=== PATIENT | male | born 1980 | race Caucasian/White ===

== ENCOUNTER 2020-07-24 08:21 | Emergency (ER) | payer MEDICAID ==
--- NOTE | 2020-07-24 08:38 | ED Physician Documentation ---
PD HPI FOCAL NEURO - Stated complaint Stated Complaint: FACIAL PARALYSIS/BODY PX - History obtained from History obtained from: Patient - History of Present Illness Timing - onset: How many weeks ago (1) Timing - duration: Weeks (1) Timing - details: Gradual onset (He states he started with some pain around the side of the neck and face about a week ago. He also had some nonfocal pains in the back. He states he was seen at a walk-in clinic and diagnosed with muscle spasms initially. Developed increasing weakness right face. Seen at [facility] Dx w/[facility].), Still present, Other (11He states he is now feeling generalized muscle aches and a feeling of intermittent tingling diffusely in arms and legs. It is not consistent and there is no areas of weakness. He denies headache per se but is having some facial pain.) Severity of deficit: Moderate Weakness: Face. No: Arm, Leg Numbness: No: Face, Arm, Leg Associated symptoms: Other (some muscle cramps in both lower legs.). No: Headache (but having right facial pain and behind ear on right) Contributing factors: positive: Other (he had J&J vaccine 3 weeks ago and is concerned about relationship to that.). negative: Anticoagulated, Vascular dz Baseline status: positive: A&OX3, ambulatory, indep Similar symptoms before: Has not had sx before Recently seen: Clinic (had J&J COVID vaccine 3 weeks ago.), Emergency Dept (Dx with wisdom palsy) Review of Systems Constitutional: denies: Fever, Chills Nose: denies: Rhinorrhea / runny nose, Congestion Throat: denies: Sore throat Respiratory: denies: Cough GI: reports: Nausea. denies: Abdominal Pain, Vomiting, Diarrhea : denies: Dysuria, Frequency Musculoskeletal: reports: Neck pain (right side of neck and behind ear.). denies: Back pain Neurologic: reports: Focal weakness (right face), Numbness (intermittently on both legs and feet.). denies: Difficulty speaking Psychiatric: denies: Depressed, Suicidal Immunocompromised: denies: Immunocompromised PD PAST MEDICAL HISTORY - Past Medical History Cardiovascular: None Respiratory: None Neuro: None Endocrine/Autoimmune: None - Present Medications Home Medications: Ambulatory Orders Medication Instructions Recorded Confirmed Acyclovir 400 mg PO QID 5 Days #40 cap 07/24/20 Meloxicam [Mobic] 0 mg 07/24/20 Potassium Citrate 500 gm MC DAILY 10 Days #10 packet 07/24/20 dexAMETHasone [Decadron] 4 mg PO DAILY #5 tablet 07/24/20 - Allergies Allergies/Adverse Reactions: Allergies Allergy/AdvReac Type Severity Reaction Status Date / Time No Known Drug Allergies Allergy Verified 07/24/20 08:44 PD ED PE NORMAL - Vitals Vital signs reviewed: Yes - General General: Alert and oriented X 3, No acute distress, Well developed/nourished - HEENT HEENT: PERRL, EOMI, Moist mucous membranes, Pharynx benign, Other (right facial weakness including forehead.) - Neck Neck: Supple, no meningeal sign, No adenopathy - Cardiac Cardiac: RRR, No murmur - Respiratory Respiratory: Clear bilaterally - Abdomen Abdomen: Soft, Non tender - Back Back: No CVA TTP - Derm Derm: Normal color, Warm and dry, No rash - Extremities Extremities: Normal ROM s pain, No edema, No calf tenderness / cord - Neuro Neuro: Alert and oriented X 3, No sensory deficit (normal sensation to touch and pinprick), Normal speech Eye Opening: Spontaneous Motor: Obeys Commands Verbal: Oriented GCS Score: 15 Results - Vitals Vitals: Vital Signs - 24 hr 07/24/20 07/24/20 08:30 11:00 Temperature 36.6 C 37.0 C Heart Rate 85 59 L Respiratory 16 21 Rate Blood Pressure 146/112 H 160/100 H O2 Saturation 96 100 Oxygen O2 Source Room air - Labs Labs: Laboratory Tests 07/24/20 07/24/20 07/24/20 09:08 09:08 10:29 WBC 15.8 H RBC 5.77 Hgb 17.5 Hct 51.5 MCV 89.3 MCH 30.3 MCHC 34.0 RDW 13.2 Plt Count 274 MPV 10.3 Neut # (Auto) 10.5 H Lymph # (Auto) 3.8 H [place] # (Auto) 1.1 H Eos # (Auto) 0.3 Baso # (Auto) 0.1 Absolute Nucleated RBC 0.00 Nucleated RBC % 0.0 Sodium 138 Potassium 3.3 L Chloride 98 L Carbon Dioxide 27 Anion Gap 13.0 BUN 19 Creatinine 0.9 Estimated GFR (MDRD) 94 Glucose 105 H Calcium 9.6 Magnesium 2.2 Total Bilirubin 1.4 H AST 20 ALT 30 Alkaline Phosphatase 55 Total Creatine Kinase 60 Total Protein 7.9 Albumin 4.9 Globulin 3.0 Albumin/Globulin Ratio 1.6 Lipase 25 Urine Color YELLOW Urine Clarity CLEAR Urine pH 5.5 Ur Specific [place] 1.020 Urine Protein NEGATIVE Urine Glucose (UA) NEGATIVE Urine Ketones TRACE Urine Occult Blood NEGATIVE Urine Nitrite NEGATIVE Urine Bilirubin NEGATIVE Urine Urobilinogen 0.2 (NORMAL) Ur Leukocyte Esterase NEGATIVE Ur Microscopic Review NOT INDICATED Urine Culture Comments NOT INDICATED PD MEDICAL DECISION MAKING - ED course Complexity details: reviewed results, considered differential (has facial weakness right side c/w Wisdom Palsy. Has had feeling of numbness in legs at times and feeling generally weak. Can check labs. Has lived in [place] his life. ), d/w patient Departure - Departure Disposition: 01 Home, Self Care Clinical Impression: Wisdom palsy, Myalgia, Hypokalemia Condition: Stable Record reviewed to determine appropriate education?: Yes Follow-Up: [facility] [Provider Group] Physicians [Provider Group] Prescriptions: Acyclovir 400 mg PO QID 5 Days #40 cap dexAMETHasone [Decadron] 4 mg PO DAILY #5 tablet Potassium Citrate 500 gm MC DAILY 10 Days #10 packet Comments: Try to stay hydrated. Food as able and he may try things like supplement protein shakes or so given the difficulty chewing. Add potassium supplement daily for the next 7 to 10 days. This likely will help with some of the numbness of feelings you are having is your potassium is a little bit low. For continued treatment of the Wisdom's palsy, I would extend out the steroid dosing and I prescribed Decadron daily for another 5 days. I wrote for capsules of the antiviral medicine so you can break them open and have the granules as opposed to a large tablet. Add Tylenol 4 times a day as needed for pains and aches. Follow-up with the primary care in about a week, call for an appointment, for recheck on how well you are doing. Return to the ER if needed. No signs of blood clots in your legs on ultrasound. Discharge Date/Time: 07/24/20 11:15
[2020-07-24] MEDS ORDERED: LORazepam 0.5 MG TABLET PO STA (09:00)
[2020-07-24 09:24] LABS: BASOPHILS # (AUTO) 0.1 10^3/uL (0.0-0.1); BASOPHILS % (AUTO) 0.4 %; EOSINOPHILS # (AUTO) 0.3 10^3/uL (0.0-0.7); EOSINOPHILS % (AUTO) 2.1 %; HCT - HEMATOCRIT 51.5 % (42.0-52.0); HGB - HEMOGLOBIN 17.5 g/dL (14.0-18.0); LYMPHOCYTES # (AUTO) 3.8 10^3/uL (1.5-3.5); LYMPHOCYTES % (AUTO) 23.8 %; MEAN CORPUSCULAR HEMOGLOBIN 30.3 pg (27.0-31.0); MEAN CORPUSCULAR VOLUME 89.3 fL (80.0-94.0); MEAN PLATELET VOLUME 10.3 fL (7.4-11.4); MONOCYTES # (AUTO) 1.1 10^3/uL (0.0-1.0); MONOCYTES % (AUTO) 6.9 %; NEUTROPHILS # (AUTO) 10.5 10^3/uL (1.5-6.6); NEUTROPHILS % (AUTO) 66.2 %; PLT - PLATELET COUNT 274 10^3/uL (130-450); RED BLOOD COUNT 5.77 10^6/uL (4.70-6.10); RED CELL DISTRIBUTION WIDTH 13.2 % (12.0-15.0); WHITE BLOOD COUNT 15.8 x10^3/uL (4.8-10.8)
[2020-07-24 09:42] LABS: ALBUMIN 4.9 g/dL (3.2-5.5); ALBUMIN/GLOBULIN RATIO 1.6 (1.0-2.2); BILIRUBIN,TOTAL 1.4 mg/dL (0.2-1.0); CALCIUM 9.6 mg/dL (8.5-10.3); CREATININE 0.9 mg/dL (0.6-1.2); MAGNESIUM 2.2 mg/dL (1.7-2.8); POTASSIUM 3.3 mmol/L (3.5-5.0); TOTAL PROTEIN 7.9 g/dL (6.7-8.2)
--- NOTE | 2020-07-24 10:23 | Ultrasound Report ---
PROCEDURE: Duplex Ext Veins Bilateral INDICATIONS: Bilateral calf pain. TECHNIQUE: Real-time imaging, as well as color and pulse Doppler interrogation, were performed of the deep veins of both legs from the inguinal ligament to the popliteal fossa. COMPARISON: None. FINDINGS: The deep veins are normally compressible, and free of intraluminal thrombus. Color and pu lse Doppler demonstrate normal phasic intravascular flow. There is normal augmentation response to d istal compression maneuver. IMPRESSION: 1. No evidence of deep venous thrombosis in the right or left lower extremity. Reviewed by: Rudy Pickens MD on 07/24/2020 10:22 AM PDT Approved by: Rudy Pickens MD on 07/24/2020 10:22 AM PDT Station ID: [id number]
[2020-07-24 10:31] LABS: BILIRUBIN,URINE NEGATIVE (NEGATIVE); GLUCOSE, URINE (UA) NEGATIVE (NEGATIVE); KETONES,URINE (UA) TRACE mg/dL (NEGATIVE); LEUKOCYTE ESTERASE, URINE NEGATIVE (NEGATIVE); NITRITE,URINE NEGATIVE (NEGATIVE); OCCULT BLOOD,URINE NEGATIVE (NEGATIVE); PH,URINE 5.5 PH (5.0-7.5); PROTEIN,URINE NEGATIVE (NEGATIVE); UROBILINOGEN,URINE 0.2 (NORMAL) E.U./dL (NORMAL)
[2020-07-24 10:32] LABS: CLARITY,URINE CLEAR (CLEAR)
[2020-07-24] MEDS ORDERED: DEXAMETHASONE 10 MG/ML VIAL PO STA (10:52)
[2020-07-24] MEDS ORDERED: CHERRY SYRUP 10 ML UDC PO ONE (10:52)
[2020-07-24] MEDS ORDERED: ACETAMINOPHEN 325 MG TABLET PO STA (10:52)
[2020-07-24 11:03] VITALS: BP 160/100
[2020-08-01 16:01] LABS: 18 KD (IGG) BAND NON-REACTIVE; 23 KD (IGG) BAND NON-REACTIVE; 23 KD (IGM) BLOT REACTIVE; 28 KD (IGG) BAND NON-REACTIVE; 30 KD (IGG) BAND NON-REACTIVE; 39 KD (IGG) BAND NON-REACTIVE; 39 KD (IGM) BLOT NON-REACTIVE; 41 KD (IGG) BAND NON-REACTIVE; 41 KD (IGM) BLOT NON-REACTIVE; 45 KD (IGG) BAND NON-REACTIVE; 58 KD (IGG) BAND NON-REACTIVE; 66 KD (IGG) BAND NON-REACTIVE; 93 KD (IGG) BAND NON-REACTIVE
== END 2020-07-24 11:15 | disposition home or self-care (01) ==
LOC: ED 08:21
DX: G51.0 Bell's palsy (principal); M79.10 Myalgia, unspecified site; E87.6 Hypokalemia; M79.662 Pain in left lower leg; M79.661 Pain in right lower leg; R20.0 Anesthesia of skin; R53.1 Weakness
CPT/HCPCS: 36415; 80053; 81003; 82550; 83690; 83735; 85025; 86617; 93970; 99283; 99284; A9270; 81001; 87086

== ENCOUNTER 2020-07-31 10:25 | Emergency (ER) | payer MEDICAID ==
--- NOTE | 2020-07-31 12:49 | ED Physician Documentation ---
PD HPI NECK PAIN - Stated complaint Stated Complaint: PLUMMER/NECK PX - Chief complaint Chief Complaint: General - History obtained from History obtained from: Patient - History of Present Illness Timing - onset: How many weeks ago (has had neck pain for over a week, with also right facial weakness c/w Wisdom Palsy. Rx with steroids and antivirals. Improving facial weakness but neck pain remains and worse. Increased with ROM. No radiation to arms nor UE weakness/paresthesias.) Timing - details: Gradual onset, Still present, Waxing and waning (but not improved) Location: Upper, Right (more to the right), Left Quality: Pain, Aching. No: Tearing Associated symptoms: Weakness (right facial last week, improving). No: Fever, Numbness Improves with: No: Meds (taking Tylenol and Ibuprofen without improvement.) Worsened by: Movement, Twisting, Palpation Contributing factors: No: Lifting, Twisting, Trauma Similar symptoms before: Has not had sx before Recently seen: Emergency Dept (a week ago with the facial weakness, and had some neck pain then.) Review of Systems Constitutional: denies: Fever, Chills, Myalgias Eyes: denies: Decreased vision, Photophobia Ears: denies: Ear pain Nose: denies: Rhinorrhea / runny nose, Congestion Throat: denies: Sore throat Cardiac: denies: Chest pain / pressure Respiratory: denies: Dyspnea, Cough GI: reports: Nausea. denies: Abdominal Pain, Vomiting, Diarrhea Skin: denies: Rash, Lesions Musculoskeletal: reports: Neck pain. denies: Back pain Neurologic: reports: Focal weakness (right face, improving the past few days). denies: Numbness, Confused, Altered mental status, Headache, Head injury, LOC PD PAST MEDICAL HISTORY - Past Medical History Cardiovascular: None Respiratory: None Neuro: None Endocrine/Autoimmune: None - Past Surgical History Past Surgical History: Yes General: Appendectomy - Present Medications Home Medications: Ambulatory Orders Medication Instructions Recorded Confirmed HYDROcod/ACETAM 5/325 [[place] 5/325] 1 ea PO Q6H PRN #10 tablet 07/31/20 Meloxicam [Mobic] 7.5 mg PO BID PRN #20 tablet 07/31/20 tiZANidine [Zanaflex] 4 mg PO Q8H PRN #20 tablet 07/31/20 - Allergies Allergies/Adverse Reactions: Allergies Allergy/AdvReac Type Severity Reaction Status Date / Time No Known Drug Allergies Allergy Verified 07/31/20 10:45 - Social History Does the pt smoke?: Yes Smoking Status: Current every day smoker Does the pt drink ETOH?: No Does the pt have substance abuse?: Yes PD ED PE NORMAL - Vitals Vital signs reviewed: Yes - General General: Alert and oriented X 3, No acute distress, Well developed/nourished - HEENT HEENT: Pharynx benign, Other (right face with improved weakness including the forehead compared to my exam a week ago. still some weakness though. ) - Neck Neck: Supple, no meningeal sign, No bony TTP (not tender midlines directly. Tender at upper trapezius insertion sites and occipital ridge bilaterally, but right more than left. No rash nor sores. Some muscle tenderness laterally.), No adenopathy - Cardiac Cardiac: RRR, No murmur - Respiratory Respiratory: Clear bilaterally - Derm Derm: Normal color, Warm and dry, No rash - Extremities Extremities: No edema, No calf tenderness / cord - Neuro Neuro: Alert and oriented X 3, No motor deficit, No sensory deficit, Normal speech Results - Vitals Vitals: Vital Signs - 24 hr 07/31/20 07/31/20 07/31/20 10:40 13:35 15:52 Temperature 36.3 C L 36.9 C 98.6 C H Heart Rate 78 92 84 Respiratory 16 16 12 Rate Blood Pressure 152/104 H 137/109 H 158/108 H O2 Saturation 95 98 98 Oxygen O2 Source Room air - Labs Labs: Laboratory Tests 07/31/20 07/31/20 13:30 13:30 WBC 21.7 H RBC 6.11 H Hgb 18.8 H Hct 54.1 H MCV 88.5 MCH 30.8 MCHC 34.8 RDW 13.3 Plt Count 320 MPV 10.2 Neut # (Auto) 14.0 H Lymph # (Auto) 5.6 H [place] # (Auto) 1.5 H Eos # (Auto) 0.4 Baso # (Auto) 0.1 Absolute Nucleated RBC 0.00 Nucleated RBC % 0.0 Manual Slide Review Indicated WBC Morphology NORMAL APPEARANCE Platelet Estimate NORMAL (130-450,000) Platelet Morphology NORMAL APPEARANCE RBC Morph Micro Appear NORMAL APPEARANCE Sodium 139 Potassium 3.7 Chloride 99 L Carbon Dioxide 28 Anion Gap 12.0 BUN 29 H Creatinine 1.0 Estimated GFR (MDRD) 83 L Glucose 98 Calcium 9.6 Total Bilirubin 1.0 AST 23 ALT 45 Alkaline Phosphatase 51 C-Reactive Protein < 1.0 Total Protein 7.7 Albumin 4.7 Globulin 3.0 Albumin/Globulin Ratio 1.6 Lipase 37 - Rads (name of study) head and neck angios Radiology: Prelim report reviewed (no acute process, normal vascular flow, no tumors, no bleeding. ), See rad report PD MEDICAL DECISION MAKING - ED course Complexity details: reviewed old records, reviewed results, considered differential (consistent neck pain. No injury. Can get imaging to ensure no structural cause. More likely is muscular. ), d/w patient Departure - Departure Disposition: 01 Home, Self Care Clinical Impression: Neck pain Condition: Stable Record reviewed to determine appropriate education?: Yes Instructions: ED Neck Pain No Trauma Follow-Up: Freddy Mata MD [Primary Care Provider] - Prescriptions: Meloxicam [Mobic] 7.5 mg PO BID PRN #20 tablet PRN Reason: Pain HYDROcod/ACETAM 5/325 [[place] 5/325] 1 ea PO Q6H PRN #10 tablet PRN Reason: Pain tiZANidine [Zanaflex] 4 mg PO Q8H PRN #20 tablet PRN Reason: Spasms Comments: Your CT scan of the head and neck did not show any acute process to account for the pain per se. It sounds muscular in character. We can treat her with a different anti- inflammatory and add tizanidine muscle relaxant. Heat and gentle stretching for the area. Add Tylenol every 4-6 hours if needed for pain or hydrocodone if needed for worse pain infrequently. Follow-up with your primary care if not improved well over the next few days to week. Discharge Date/Time: 07/31/20 15:52
[2020-07-31] MEDS ORDERED: KETOROLAC 30 MG/ML VIAL IVP STA (13:22)
[2020-07-31 13:37] LABS: BASOPHILS # (AUTO) 0.1 10^3/uL (0.0-0.1); BASOPHILS % (AUTO) 0.3 %; EOSINOPHILS # (AUTO) 0.4 10^3/uL (0.0-0.7); EOSINOPHILS % (AUTO) 1.7 %; HCT - HEMATOCRIT 54.1 % (42.0-52.0); HGB - HEMOGLOBIN 18.8 g/dL (14.0-18.0); LYMPHOCYTES # (AUTO) 5.6 10^3/uL (1.5-3.5); LYMPHOCYTES % (AUTO) 25.7 %; MEAN CORPUSCULAR HEMOGLOBIN 30.8 pg (27.0-31.0); MEAN CORPUSCULAR HGB CONC 34.8 g/dL (32.0-36.0); MEAN CORPUSCULAR VOLUME 88.5 fL (80.0-94.0); MEAN PLATELET VOLUME 10.2 fL (7.4-11.4); MONOCYTES # (AUTO) 1.5 10^3/uL (0.0-1.0); MONOCYTES % (AUTO) 6.9 %; NEUTROPHILS % (AUTO) 64.5 %; PLT - PLATELET COUNT 320 10^3/uL (130-450); RED BLOOD COUNT 6.11 10^6/uL (4.70-6.10); RED CELL DISTRIBUTION WIDTH 13.3 % (12.0-15.0); WHITE BLOOD COUNT 21.7 x10^3/uL (4.8-10.8)
[2020-07-31 13:40] LABS: SLIDE REVIEW? Indicated
[2020-07-31 13:55] LABS: ALBUMIN 4.7 g/dL (3.2-5.5); ALBUMIN/GLOBULIN RATIO 1.6 (1.0-2.2); ALKALINE PHOSPHATASE 51 IU/L (42-121); ALT ALANINE AMINOTRANSFERASE 45 IU/L (10-60); AST ASPARTATE AMINOTRANSFERASE 23 IU/L (10-42); BUN - BLOOD UREA NITROGEN 29 mg/dL (6-20); CALCIUM 9.6 mg/dL (8.5-10.3); CARBON DIOXIDE - CO2 28 mmol/L (21-32); CHLORIDE 99 mmol/L (101-111); GFR - MDRD 83 (>89); GLUCOSE 98 mg/dL (70-100); LIPASE 37 U/L (22-51); POTASSIUM 3.7 mmol/L (3.5-5.0); SODIUM 139 mmol/L (135-145); TOTAL PROTEIN 7.7 g/dL (6.7-8.2)
[2020-07-31 13:56] LABS: PLATELET ESTIMATE, MANUAL NORMAL (130-450,000) (NORMAL); PLATELET MORPHOLOGY NORMAL APPEARANCE (NORMAL); RBC MORPHOLOGY (MULTIPLE) NORMAL APPEARANCE (NORMAL); WBC MORPHOLOGY (MULTIPLE) NORMAL APPEARANCE (NORMAL)
[2020-07-31 14:06] LABS: CRP - C-REACTIVE PROTEIN < 1.0 mg/dL (0-1.0)
[2020-07-31] MEDS ORDERED: IOPAMIDOL-300 100 ML VIAL IVP ONE (14:44)
--- NOTE | 2020-07-31 14:51 | CT Report ---
PROCEDURE: ANGIO HEAD W/WO INDICATIONS: L sided facial droop CONTRAST: IV CONTRAST: Isovue 300 ml: 80 PO CONTRAST: *NO PO CONTRAST TECHNIQUE: Precontrast 4.5 mm thick angled axial sections acquired from the foramen magnum to the vertex. Afte r the administration of intravenous contrast, 1 mm thick sections acquired through the [place] of [place] is. Postcontrast 4.5 mm thick sections then re-acquired from the foramen magnum to the vertex. 3-di mensional [id number] (MIP) and/or volume rendering reformats were acquired of the c entral intracranial vasculature. For radiation dose reduction, the following was used: automated ex posure control, adjustment of mA and/or kV according to patient size. COMPARISON: Correlation is made with the accompanying neck CT angiogram, 07/31/2020. FINDINGS: Image quality: Excellent. Anterior circulation: Intracranial internal carotid arteries are normal in size and flow. Note is m trudy of a diminutive right A1 segment, with a correspondingly robust left A1 segment. This is consider ed to be a developmental variant of no clinical consequence. The flow within the paired anterior cer ebral arteries is otherwise normal and symmetric. The flow within the middle cerebral arteries is no rmal and symmetric. The anterior communicating artery is seen. No aneurysms are seen. Posterior circulation: Visualized portions of the vertebral arteries demonstrate normal caliber, and join to form a normal appearing basilar artery. Flow within the posterior cerebral arteries is norm al and symmetric. No aneurysms are seen. CSF spaces: Ventricles are normal in size and shape. Basal cisterns are patent. No extra-axial flu id collections. Brain: No midline shift. No intracranial bleeds or masses. Davis-white matter interface appears int act. Skull and face: Calvarium and facial bones appear intact, without suspicious lesions. Sinuses: Visualized sinuses and mastoids are clear. IMPRESSION: No intracranial hemorrhage is seen. No significant intracranial abnormality is seen. No significant intracranial arterial abnormalities are seen. No masses or abnormal enhancement can be seen. Reviewed by: Poncho Novoa MD on 07/31/2020 1:50 PM AKKARLA Approved by: Poncho Novoa MD on 07/31/2020 1:50 PM AKKARLA Station ID: [id number]
--- NOTE | 2020-07-31 14:55 | CT Report ---
PROCEDURE: ANGIO NECK W INDICATIONS: L sided facial droop, L neck pain CONTRAST: IV CONTRAST: Isovue 300 ml: 80 PO CONTRAST: *NO PO CONTRAST TECHNIQUE: After the administration of intravenous contrast, 1.5 mm axial sections acquired from the aortic arch to the [place] of [place]. Coronal 3-D maximum intensity projection (MIP) and/or volume rendering ref ormats were then performed. For radiation dose reduction, the following was used: automated exposur e control, adjustment of mA and/or kV according to patient size. COMPARISON: Correlation is made with the accompanying brain MR angiogram, 07/31/2020. FINDINGS: Image quality: Excellent. Carotid system: The great vessels demonstrate a conventional anatomy as they arise from the aortic a rch. The origins of the common carotid arteries appear patent. The common carotid arteries demonstr ate normal calibers and courses. The bifurcation regions appear normal bilaterally. The internal ca rotid arteries demonstrate normal caliber and course. Posterior circulation: The origins of the vertebral arteries appear patent. The more superior porti ons of the vertebral arteries demonstrate normal course and caliber. They join to form a normal appe aring basilar artery. Soft tissues: Visualized neck soft tissues demonstrate no suspicious abnormalities. The thyroid gla nd is normal in size. Bones: No suspicious bony lesions. Visualized cervical spine appears normally aligned. Focal mild C6-C7 degenerative change can be seen. IMPRESSION: No hemodynamically significant stenosis can be seen within the arteries of the neck. The estimate of stenosis included in the report of the imaging study was calculated using the NASCET method Reviewed by: Poncho Novoa MD on 07/31/2020 1:53 PM JARAD Approved by: Poncho Novoa MD on 07/31/2020 1:53 PM JARAD Station ID: [id number]
[2020-07-31 15:52] VITALS: BP 158/108
== END 2020-07-31 15:52 | disposition home or self-care (01) ==
LOC: ED 10:25
DX: M54.2 Cervicalgia (principal); F17.200 Nicotine dependence, unspecified, uncomplicated
CPT/HCPCS: 36415; 70496; 70498; 80053; 83690; 85025; 86140; 96374; 99284; Q9967